=== PATIENT | female | born 1985 | race Caucasian/White ===

== ENCOUNTER 2021-12-15 23:25 | Inpatient (IN) ==
[2021-12-16] MEDS ORDERED: Buffered Lidocaine 1% SYRIN 1 ml INTRADERM ONE ×2 (00:37→07:57)
[2021-12-16] MEDS ORDERED: Promethazine INJ(RESTRICTED) 25 MG/ML 1 ml VIAL IV ONE (00:41)
[2021-12-16] MEDS ORDERED: Nalbuphine 10 MG/ML 1 ML VIAL IV ONE (00:41)
[2021-12-16 01:34] LABS: ABS Lymphocytes 2.5 10^3/ul (1.0-4.8); ABS Monocytes 0.7 10^3/ul (0-0.8); ABS Neutrophils 6.2 10^3/ul (1.5-7.7); Eosinophil % 0.5 %; Hematocrit 42 % (35-47); Lymphocyte % 26.2 %; Mean Corpuscular HGB Conc 34 g/dL (31-36); Mean Corpuscular Hemoglobin 32 pg (27-31); Mean Corpuscular Volume 95 fL (80-97); Mean Platelet Volume 11.4 fL (7.4-10.4); Nucleated Red Blood Cells % 0.1; Platelet Count 134 10^3/uL (150-450); Red Blood Count 4.36 10^6 /uL (3.70-4.87); Red Cell Distribution Width 13 % (10-15); White Blood Count 9.4 10^3/uL (3.5-10.8)
[2021-12-16 01:52] LABS: Urine Benzodiazepine Screen None Detected (None Detect); Urine Cannabinoids Screen None Detected (None Detect); Urine Opiates Screen None Detected (None Detect)
[2021-12-16] MEDS ORDERED: Lactated Ringers 1000 ml BAG 1,000 ML IV ONE (07:57)
[2021-12-16] MEDS ORDERED: Penicillin G Potassium IV 5,000,000 UNITS in NS 0.9% 100 ml BAG 100 ML IVPB ONE (08:51)
[2021-12-16] MEDS: Lactated Ringers 1000 ml BAG 1,000 ML IV SCH ×2 (09:30→22:16)
[2021-12-16] MEDS: Penicillin G Potassium IV 3,000,000 UNITS in NS 0.9% 100 ml BAG 100 ML IVPB SCH ×3 (13:51→22:51)
[2021-12-16] MEDS ORDERED: OBEPIDURAL (200 ML) 200 ML EPIDURAL ONE (14:50)
[2021-12-16] MEDS ORDERED: Lidocaine 1% w EPI 1:200,000 SDV 30 ML VIAL ONE (14:51)
[2021-12-16 17:53] LABS: Urine Appearance Clear; Urine Color Yellow
[2021-12-16 17:54] LABS: Urine Bilirubin Negative (Negative); Urine Blood Negative (Negative); Urine Glucose Negative (Negative); Urine Ketones Negative (Negative); Urine Nitrite Negative (Negative); Urine Protein Negative (Negative); Urine Urobilinogen 0.2 (Negative) (Negative)
[2021-12-16] MEDS ORDERED: Bupivacaine 0.25% w/EPI 10 ML SDV ONE (23:11)
[2021-12-16] MEDS ORDERED: fentaNYL 100 mcg/2 ml 50 MCG/ML VIAL ONE (23:11)
[2021-12-17] MEDS: Penicillin G Potassium IV 3,000,000 UNITS in NS 0.9% 100 ml BAG 100 ML IVPB SCH (04:02)
[2021-12-17] MEDS ORDERED: ceFOXitin 2 GM IVPREMIX 2 GM/50 ML BAG ONE (05:31)
[2021-12-17] MEDS ORDERED: Lidocaine 2% w/ EPI 1:200,000 MPF 20 ML SDV VIAL ONE (05:38)
[2021-12-17] MEDS ORDERED: Naloxone 0.4 mg VIAL 0.4 mg/ml 1 ml VIAL IV PRN ×2 (06:00→06:33)
[2021-12-17] MEDS ORDERED: Ondansetron 4 mg VIAL 2 MG/ML 2 ml VIAL IV PRN (06:00)
[2021-12-17] MEDS ORDERED: Dexamethasone IV 4 MG/ML VIAL 1 ml VIAL ONE (06:01)
[2021-12-17] MEDS ORDERED: Oxytocin 10 UNITS/ML 1 ML VIAL ONE (06:01)
[2021-12-17] MEDS ORDERED: Ondansetron 4 mg VIAL 2 MG/ML 2 ml VIAL ONE (06:01)
[2021-12-17] MEDS ORDERED: Morphine PF AMP (0.5MG/ML) 5 MG/10 ML AMP ONE (06:18)
[2021-12-17] MEDS ORDERED: Sodium Citrate/Citric Acid LIQ 15 ML UDC PO PRN (06:31)
[2021-12-17] MEDS ORDERED: Phenylephrine 40 mcg/mL 10mL (400mcg) SYRINGE IV PUSH PRN ×2 (06:31)
[2021-12-17] MEDS ORDERED: Lactated Ringers 1000 ml BAG 1,000 ML IV ONE (06:31)
[2021-12-17] MEDS ORDERED: Acetaminophen IV 1 GM/100ML 100 ML IV ONE ×2 (06:33→06:47)
[2021-12-17] MEDS ORDERED: Naloxone 4 mg VIAL (10 ml) 2 MG in NS 0.9% 250 ml 250 ML IV PRN (06:35)
[2021-12-17] MEDS ORDERED: OBEPIDURAL (200 ML) 200 ML EPIDURAL SCH (07:00)
[2021-12-17] MEDS ORDERED: Lactated Ringers 1000 ml BAG 1,000 ML IV SCH ×2 (07:00→08:00)
[2021-12-17] MEDS ORDERED: Witch Hazel PAD JAR TOPICAL PRN (07:39)
[2021-12-17] MEDS ORDERED: Glycerin ADULT 2.4 gm SUPP PR PRN (07:39)
[2021-12-17] MEDS ORDERED: Dibucaine 1% OINT 28.35 GM TUBE PR PRN (07:39)
[2021-12-17] MEDS ORDERED: Oxytocin in LR 20,000 MILLI.UNIT/1,000 ML BAG IV SCH (08:00)
[2021-12-17] MEDS: oxyCODONE/Acetamin 5/325 mg TAB PO PRN ×2 (14:35→18:30)
[2021-12-18 06:23] LABS: ABS Eosinophils 0.1 10^3/ul (0-0.6); ABS Lymphocytes 2.2 10^3/ul (1.0-4.8); ABS Monocytes 0.8 10^3/ul (0-0.8); ABS Neutrophils 8.9 10^3/ul (1.5-7.7); Eosinophil % 0.6 %; Hematocrit 31 % (35-47); Hemoglobin 10.9 g/dL (12.0-16.0); Lymphocyte % 18.5 %; Mean Corpuscular HGB Conc 35 g/dL (31-36); Mean Corpuscular Hemoglobin 34 pg (27-31); Mean Corpuscular Volume 97 fL (80-97); Mean Platelet Volume 10.2 fL (7.4-10.4); Platelet Count 105 10^3/uL (150-450); Red Cell Distribution Width 14 % (10-15)
[2021-12-19] MEDS: Penicillin G Potassium IV 3,000,000 UNITS in NS 0.9% 100 ml BAG 100 ML IVPB SCH ×2 (22:38→22:39)
[2021-12-20 09:10] VITALS: BP 138/88
== END 2021-12-20 13:30 | disposition home or self-care (01) | DRG 788 ==
LOC: MCHOBOUT 23:25 → MCHOB 12-16 08:29
PROVIDERS: ADMIT Midwife; ATTEND Midwife

== ENCOUNTER 2023-12-19 05:20 | Inpatient (IN) ==
[2023-12-19] MEDS: Lactated Ringers 1000 ml BAG 1,000 ML IV SCH ×2 (06:09→08:02)
[2023-12-19 07:21] LABS: Hematocrit 36.8 % (35-45); Hemoglobin 12.9 g/dL (11.5-14.3); Mean Corpuscular Hemoglobin 33.6 pg (27-33); Mean Corpuscular Hgb Conc 35.1 g/dL (31-36); Mean Corpuscular Volume 95.7 fL (80-97); Red Blood Count 3.85 10^6/uL (3.63-4.92); Red Cell Distribution Width 13.7 % (12-17); White Blood Count 7.2 10^3/uL (3.8-11.8)
[2023-12-19 07:41] LABS: ABS Lymphocytes 2.2 10^3/uL (1.0-4.8); ABS Monocytes 0.6 10^3/uL (0.0-0.9); ABS Neutrophils 4.3 10^3/uL (1.5-7.6); ABS Nucleated RBC 0.01 10^3/ul; Eosinophil % 0.7 %; Lymphocyte % 30.8 %; Mean Platelet Volume 10.6 fL (7.5-11.2); Nucleated Red Blood Cells % 0.1 %/100WBC (0.0-0.8); Platelet Count 141 10^3/uL (150-450)
[2023-12-19] MEDS: Sodium Citrate/Citric Acid LIQ 15 ML UDC PO ONE ×2 (07:59→10:16)
[2023-12-19] MEDS: Lactated Ringers 1000 ml BAG 1,000 ML IV ONE (08:02)
[2023-12-19] MEDS: ceFOXitin 2 GM IVPREMIX 2 GM/50 ML BAG IVPB ONE (08:02)
[2023-12-19] MEDS: Buffered Lidocaine 1% SYRIN 1 ml INTRADERM ONE ×2 (08:02→10:16)
[2023-12-19] MEDS: Famotidine IV 10 MG/ML 2 ml VIAL (20 mg) IV ONE (08:03)
[2023-12-19] MEDS ORDERED: Oxytocin 10 UNITS/ML 1 ML VIAL ONE (08:14)
[2023-12-19] MEDS ORDERED: Ondansetron 4 mg VIAL 2 MG/ML 2 ml VIAL ONE (08:14)
[2023-12-19] MEDS ORDERED: Morphine PF AMP (0.5MG/ML) 5 MG/10 ML AMP ONE (08:14)
[2023-12-19] MEDS ORDERED: Bupivacaine 0.5% SDV PF 30ML VIAL ONE (08:18)
[2023-12-19] MEDS ORDERED: Dexamethasone IV 4 MG/ML VIAL 1 ml VIAL ONE (08:36)
[2023-12-19] MEDS ORDERED: Acetaminophen IV 1 GM/100ML 1,000 MG/100 ML BAG IV ONE (09:20)
[2023-12-19] MEDS ORDERED: Acetaminophen IV 1 GM/100ML 1,000 MG/100 ML BAG IV PRN (09:28)
[2023-12-19] MEDS ORDERED: Naloxone 0.4 mg VIAL 0.4 mg/ml 1 ml VIAL IV PUSH PRN (09:28)
[2023-12-19] MEDS ORDERED: Metoclopramide 5 MG/ML VIAL (10 mg) IV PRN (09:28)
[2023-12-19] MEDS ORDERED: Ondansetron 4 mg VIAL 2 MG/ML 2 ml VIAL IV PRN (09:28)
[2023-12-19] MEDS ORDERED: Witch Hazel PAD JAR TOPICAL PRN (10:07)
[2023-12-19] MEDS ORDERED: Glycerin ADULT 2.4 gm SUPP PR PRN (10:07)
[2023-12-19] MEDS ORDERED: Dibucaine 1% OINT 28.35 GM TUBE PR PRN (10:07)
[2023-12-19] MEDS: Carboprost Tromethamine 250 mcg 1 ml VIAL ONE (10:16)
[2023-12-19] MEDS: Methylergonovine 0.2 mg AMPULE 1 ml AMP ONE (10:17)
[2023-12-19 10:19] LABS: Urine Appearance Clear; Urine Bilirubin Negative (Negative); Urine Blood Negative (Negative); Urine Color Colorless; Urine Glucose Negative (Negative); Urine Ketones Negative (Negative); Urine Nitrite Negative (Negative); Urine Protein Negative (Negative); Urine Specific Gravity 1.002 (1.002-1.030); Urine Urobilinogen Negative (Negative)
[2023-12-19 10:35] LABS: Urine Benzodiazepine Screen None Detected (None Detect); Urine Cannabinoids Screen None Detected (None Detect); Urine Opiates Screen None Detected (None Detect)
[2023-12-19] MEDS ORDERED: Lactated Ringers 1000 ml BAG 1,000 ML IV SCH (11:00)
[2023-12-19] MEDS: Oxytocin in LR 20,000 MILLI.UNIT/1,000 ML BAG IV SCH (19:32)
[2023-12-20 07:21] LABS: ABS Monocytes 0.7 10^3/uL (0.0-0.9); ABS Neutrophils 8.1 10^3/uL (1.5-7.6); ABS Nucleated RBC 0.01 10^3/ul; Eosinophil % 0.4 %; Hematocrit 30.9 % (35-45); Hemoglobin 11.1 g/dL (11.5-14.3); Lymphocyte % 18.5 %; Mean Corpuscular Hemoglobin 34.7 pg (27-33); Mean Corpuscular Volume 96.4 fL (80-97); Mean Platelet Volume 10.3 fL (7.5-11.2); Nucleated Red Blood Cells % 0.1 %/100WBC (0.0-0.8); Platelet Count 105 10^3/uL (150-450); Red Cell Distribution Width 13.6 % (12-17); White Blood Count 10.9 10^3/uL (3.8-11.8)
[2023-12-20 21:37] LABS: Syphilis IgG Screen Nonreactive
[2023-12-21 07:58] VITALS: BP 129/83
== END 2023-12-21 13:01 | disposition home or self-care (01) | DRG 540 ==
LOC: MCHOB 05:20
PROVIDERS: ADMIT Obstetrics & Gynecology; ATTEND Obstetrics & Gynecology